=== PATIENT | female | born 1950 | race Caucasian/White ===

== ENCOUNTER → 2017-07-08 | Outpatient (CLI) | payer MEDICARE, OTHER ==
--- NOTE | 2017-07-18 10:51 | SLEEP ---
[address] [address] SLEEP STUDY REPORT Name: PRESLEY PEDERSEN Room: [facility]#: [id number] Admission: 07/08/17 Attend Phys: Cullen Lopez Discharge: Date of : 52 Report #: [id number] THIS REPORT FOR: //name// CC: Lilliana Pierson This study has been reviewed in its entirety by a board certified sleep specialist REFERRING PHYSICIAN: Lilliana Pierson DO. TYPE OF STUDY: CPAP titration. INDICATION: Hypersomnia, known obstructive sleep apnea, home sleep apnea test done on 06/05/2017 demonstrating apnea-hypopnea index of 54 per hour and oxygen desaturation to a ole of 68%. METHODS: The following parameters were monitored: Frontal, central and occipital EEG; electro-oculogram; submentalis EMG; nasal and oral airflow; anterior tibialis EMG; body position and electrocardiogram. Additionally, thoracic and abdominal movements were recorded by inductance plethysmography. Oxygen saturation was monitored using pulse oximeter. The tracing was scored using 30-second epochs. Hypopneas were scored per the [employer] [employer] definition using the 4% desaturation criteria. SLEEP SUMMARY: Total recording time 380.2 minutes. Total sleep time 331.5 minutes. Sleep efficiency 87.2%. Latency to sleep 16.6 minutes. Latency to REM 80.1 minutes. SLEEP STAGING: Stage N1 2.4% of total sleep time, stage N2 58.5% of total sleep time, stage N3 was 14.3% of total sleep time, stage REM 24.7% total sleep time. This was a CPAP titration study where the patient was titrated at a pressure of 5, 6 and 7 cm of water. At level of 7 cm of water, the patient was captured during supine REM sleep for a total period of 31.7 minutes. At this level, the apnea-hypopnea index was 0 and oxygen saturation maintained 92% and above. Limb movement index was 35.1. The average heart rate was 69.1, with no arrhythmias were reported. Mask used during this study, a [employer] Huong nasal, size small. IMPRESSION: CPAP titration study. RECOMMENDATIONS: 1. A trial of CPAP therapy utilizing a pressure of 7 cm of water, [place] [address] SLEEP STUDY REPORT Name: PRESLEY PEDERSEN Room: [facility]#: [id number] Admission: 07/08/17 Attend Phys: Cullen Lopez Discharge: Date of : 52 Report #: [id number] clinical followup and data download. 2. Avoid sedatives, hypnotics or alcohol close to bedtime. 3. Recommend maintaining ideal body weight. 4. Recommend avoiding driving or operating machinery while drowsy. <ELECTRONICALLY SIGNED> By: Larry Polanco MD 07/18/17 [id number] [id number] MD matthew García
== END ==
LOC: M.SLEEPLAB 19:54
DX: G47.33 Obstructive sleep apnea (adult) (pediatric) (principal)